=== PATIENT | male | born 1985 | race Caucasian/White ===

== ENCOUNTER 2020-09-07 22:21 | Emergency (ER) | payer OTHER ==
[~2020-09-07] VITALS: Ht 188 cm; Wt 81.6 kg
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
--- NOTE | 2020-09-07 22:46 | NUR ---
BROUGHT TO CT
--- NOTE | 2020-09-07 23:55 | NUR ---
PER MD, PT CAN BE DISCHARGED LATER ON.
[2020-09-08 03:12] VITALS: BP 145/72
--- NOTE | 2020-09-08 03:12 | NUR ---
Patient discharged to home in stable condition. Written and verbal after care instructions given. Patient verbalizes understanding of instruction. Pt ambulated with steady gait. vss.
== END 2020-09-08 03:12 | disposition home or self-care (01) ==
LOC: ER 22:23
DX: R07.89 Other chest pain (principal); R51.9 Headache, unspecified; M54.2 Cervicalgia; M25.511 Pain in right shoulder; M25.521 Pain in right elbow; V49.49XA Driver injured in collision with other motor vehicles in traffic accident, initial encounter; Y93.89 Activity, other specified; Y92.488 Other paved roadways as the place of occurrence of the external cause; Y99.8 Other external cause status
CPT/HCPCS: 70450-TC; 71045-TC; 72125-TC; 73030-TC; 73060-TC; 73080-TC; 73090-TC

== ENCOUNTER 2020-09-22 20:01 | Emergency (ER) | payer OTHER ==
[~2020-09-22] VITALS: Ht 190.5 cm; Wt 83.9 kg
[2020-09-22 20:05] VITALS: BP 152/88
[2020-09-22] MEDS ORDERED: ACETAMINOPHEN ES 500 MG TABLET ONE (20:34)
[2020-09-22] MEDS: ACETAMINOPHEN 325 MG TABLET PO ONE (20:38)
== END 2020-09-22 20:40 | disposition home or self-care (01) ==
LOC: ER 20:04
DX: S50.311A Abrasion of right elbow, initial encounter (principal); S90.822A Blister (nonthermal), left foot, initial encounter; S90.821A Blister (nonthermal), right foot, initial encounter; Z59.0 Homelessness; Z98.890 Other specified postprocedural states; W18.39XA Other fall on same level, initial encounter; Y93.89 Activity, other specified; Y92.89 Other specified places as the place of occurrence of the external cause; Y99.8 Other external cause status